=== PATIENT | female | born 1990 | race Caucasian/White ===

== ENCOUNTER 2024-06-18 16:17 | Day surgery (SDC) | payer BC ==
[2024-06-18] MEDS ORDERED: hydrALAZINE 20 MG/ML VIAL SLOW IVP PRN (17:29)
[2024-06-18 18:04] VITALS: BMI 26.6
[2024-06-18 18:07] LABS: Creatinine, Urine 79.14 mg/dL (47-110)
[2024-06-18 18:10] LABS: #Basophils 0.03 10x3/uL (0.0-0.2); #Eosinphils 0.03 10x3/uL (0.0-0.5); #Monocytes 1.05 10x3/uL (0.0-1.1); #Neutrophils 6.36 10x3/uL (1.5-8.4); %Basophils 0.3 % (0.0-2.0); %Eosinophils 0.3 % (0.0-6.0); %Lymphocytes 23.8 % (18.0-47.0); %Monocytes 10.7 % (0.0-10.0); %Neutrophils 64.6 % (40.0-75.0); Hematocrit 33.9 % (34.9-44.5); Hemoglobin 12.1 g/dL (12.0-15.5); Mean Corpuscular HGB CONC 35.7 g/dL (32.0-36.0); Mean Corpuscular Hemoglobin 31.3 pg (27.0-33.0); Mean Corpuscular Volume 87.6 fL (81.6-98.3); Platelet Count 231 10x3/uL (150-450); RBC Distribution Width 12.6 % (11.5-14.5); Red Blood Cell (RBC) Count 3.87 10x6/uL (3.90-5.03); White Blood Cell (WBC) Count 9.8 10x3/uL (3.5-10.5)
[2024-06-18 18:24] LABS: ALT (SGPT) 28 U/L (8-55); AST (SGOT) 32 U/L (5-34); Albumin 2.4 g/dL (3.5-5.0); Alkaline Phosphatase 202 U/L (40-110); Anion Gap 14 mmol/L (10-20); BUN (Urea Nitrogen) 8 mg/dL (7.0-18.7); Bilirubin, Total 0.2 mg/dL (0.2-1.2); Calc. Creatinine Clearance 174 mL/min (70-130); Calcium 8.6 mg/dL (7.8-10.44); Carbon Dioxide 18 mmol/L (22-29); Chloride 109 mmol/L (98-107); Estimated GFR 127; Globulin 3.1 g/dL (2.4-3.5); Glucose 64 mg/dL (70-105); Potassium 3.6 mmol/L (3.5-5.1); Protein, Total 5.5 g/dL (6.0-8.3); Sodium 137 mmol/L (136-145)
== END 2024-06-18 19:35 | disposition home or self-care (01) ==
LOC: CSHLD/OP 16:17
PROVIDERS: ATTEND Obstetrics & Gynecology
DX: O13.3 Gestational [pregnancy-induced] hypertension without significant proteinuria, third trimester (principal); O14.93 Unspecified pre-eclampsia, third trimester; O99.513 Diseases of the respiratory system complicating pregnancy, third trimester; J45.909 Unspecified asthma, uncomplicated; Z3A.34 34 weeks gestation of pregnancy
CPT/HCPCS: 36415; 80053; 82570; 84156; 85025; 99283

== ENCOUNTER 2024-06-20 11:54 | Inpatient (IN) | payer BC ==
[2024-06-20] MEDS ORDERED: hydrALAZINE 20 MG/ML VIAL SLOW IVP PRN ×2 (12:52→19:55)
[2024-06-20] MEDS ORDERED: Bicitra 30 ML UDCUP PO PRN (12:52)
[2024-06-20] MEDS ORDERED: Promethazine HCl 25 MG/ML VIAL IM PRN ×2 (12:52→16:51)
[2024-06-20] MEDS ORDERED: Ondansetron PF 4 MG/2 ML Vial IVP PRN ×5 (12:52→23:11)
[2024-06-20] MEDS ORDERED: Famotidine/PF 20 mg/2ml Vial SLOW IVP PRN (12:52)
[2024-06-20] MEDS ORDERED: Lactated Ringer's 1,000 ML IV SCH (13:00)
[2024-06-20] MEDS ORDERED: Oxytocin 30 units/NS 500 ML 500 ML IV SCH ×2 (13:00→19:55)
[2024-06-20 13:23] LABS: Hematocrit 36.2 % (34.9-44.5); Mean Corpuscular HGB CONC 35.9 g/dL (32.0-36.0); Mean Corpuscular Hemoglobin 31.4 pg (27.0-33.0); Mean Corpuscular Volume 87.4 fL (81.6-98.3); Mean Platelet Volume 11.1 fL (7.4-10.4); Platelet Count 235 10x3/uL (150-450); RBC Distribution Width 12.4 % (11.5-14.5); Red Blood Cell (RBC) Count 4.14 10x6/uL (3.90-5.03); White Blood Cell (WBC) Count 8.3 10x3/uL (3.5-10.5)
[2024-06-20 13:40] LABS: ALT (SGPT) 22 U/L (8-55); AST (SGOT) 23 U/L (5-34); Albumin 2.6 g/dL (3.5-5.0); Alkaline Phosphatase 237 U/L (40-110); Anion Gap 13 mmol/L (10-20); BUN (Urea Nitrogen) 8 mg/dL (7.0-18.7); Bilirubin, Total 0.2 mg/dL (0.2-1.2); Calc. Creatinine Clearance 0 mL/min (70-130); Calcium 8.9 mg/dL (7.8-10.44); Carbon Dioxide 17 mmol/L (22-29); Chloride 109 mmol/L (98-107); Estimated GFR 127; Glucose 71 mg/dL (70-105); Potassium 4.3 mmol/L (3.5-5.1); Protein, Total 5.6 g/dL (6.0-8.3); Sodium 135 mmol/L (136-145)
[2024-06-20] MEDS: CEFAZOLIN 2 GM in Sodium Chloride 0.9% 100 ML IVPB SCH (15:23)
[2024-06-20 15:45] LABS: Syphilis Antibody Nonreactive (Nonreactive); Syphilis Antibody Index 0.03 S/CO (<1.00 Non-Reactive)
[2024-06-20 15:52] LABS: HBsAg Index 0.15 S/CO (0-0.99); Hep B Surf Ag - L&D Non-Reactive S/CO (NonReactive)
[2024-06-20] MEDS ORDERED: fentaNYL 50 mcg/mL 1 mL Vial SLOW IVP PRN ×2 (16:51→23:11)
[2024-06-20] MEDS ORDERED: Ketorolac Tromethamine 30 MG (1 mL) VIAL IVP PRN (16:51)
[2024-06-20] MEDS ORDERED: Moisturizing Cream (Eucerin) 113 GM JAR TOP PRN (16:51)
[2024-06-20] MEDS ORDERED: Meperidine HCl/PF 25 MG (1 mL) VIAL SLOW IVP PRN ×2 (16:51→23:11)
[2024-06-20] MEDS ORDERED: Naloxone HCl 0.4 mg/ml Vial IVP PRN ×2 (16:51)
[2024-06-20] MEDS ORDERED: Naloxone HCl 0.4 mg/ml Vial IV PRN (16:51)
[2024-06-20] MEDS ORDERED: diphenhydrAMINE 50 MG/ML VIAL IVP PRN (16:51)
[2024-06-20] MEDS ORDERED: Ketorolac Tromethamine 30 MG (1 mL) VIAL IVP SCH ×2 (17:00→23:15)
[2024-06-20] MEDS ORDERED: Communication Order-Pharmacy FS SCH (17:00)
[2024-06-20] MEDS ORDERED: diphenhydrAMINE 25 MG CAP PO PRN (19:55)
[2024-06-20] MEDS ORDERED: Lanolin Ointment 7 GM TUBE TOP PRN (19:55)
[2024-06-20] MEDS ORDERED: Bisacodyl 10 MG SUPP PR PRN (19:55)
[2024-06-20] MEDS ORDERED: HYDROcodone/Acetaminophen 5/325 mg Tablet PO PRN ×2 (19:55)
[2024-06-20] MEDS: ePHEDrine Sulfate 50 MG/10 ML VIAL ONE (22:58)
[2024-06-20] MEDS: fentaNYL 50 mcg/mL 1 mL Vial ONE (22:58)
[2024-06-20] MEDS: Oxytocin 10 UNITS/ML VIAL ONE ×2 (22:58→22:59)
[2024-06-20] MEDS: Ondansetron PF 4 MG/2 ML Vial ONE (22:58)
[2024-06-20] MEDS: PHENYLEPHRINE-NS 100 MCG/ML 10 ML SYRINGE ONE (22:58)
[2024-06-20] MEDS: Morphine PF 10 MG/10 ML VIAL ONE (22:58)
[2024-06-20] MEDS ORDERED: Morphine 4 MG/ML VIAL SLOW IVP PRN (23:11)
[2024-06-21] MEDS: Ketorolac Tromethamine 30 MG (1 mL) VIAL IVP PRN (03:14)
[2024-06-21 04:38] LABS: Hematocrit 30.4 % (34.9-44.5); Hemoglobin 10.6 g/dL (12.0-15.5); Mean Corpuscular HGB CONC 34.9 g/dL (32.0-36.0); Mean Corpuscular Hemoglobin 30.9 pg (27.0-33.0); Mean Corpuscular Volume 88.6 fL (81.6-98.3); Mean Platelet Volume 10.5 fL (7.4-10.4); Platelet Count 194 10x3/uL (150-450); RBC Distribution Width 12.4 % (11.5-14.5); Red Blood Cell (RBC) Count 3.43 10x6/uL (3.90-5.03); White Blood Cell (WBC) Count 11.9 10x3/uL (3.5-10.5)
[2024-06-21] MEDS: Ibuprofen 800 MG TAB PO SCH ×2 (08:00→09:40)
[2024-06-21] MEDS: Docusate 100 MG CAP PO SCH (09:40)
[2024-06-21] MEDS: Prenatal Vitamin 1 TAB PO SCH (09:40)
[2024-06-21] MEDS: Ferrous Sulfate 325 MG TAB PO SCH (14:18)
[2024-06-21] MEDS: Simethicone Chewable 80 MG TAB PO PRN (17:30)
[2024-06-21] MEDS: Boostrix 0.5 ML (Tdap) VIAL (>/=7 yrs of age) IM ONE (19:20)
[2024-06-23 07:55] VITALS: TEMP 97.9
[2024-06-23 11:07] VITALS: BP 143/90
== END 2024-06-23 17:00 | disposition home or self-care (01) | DRG 788 ==
LOC: CSHLD 11:54 → CSHPP 19:39
PROVIDERS: ADMIT Obstetrics & Gynecology; ATTEND Obstetrics & Gynecology
PROC: 10D00Z1 Extraction of Products of Conception, Low, Open Approach (ICD-10-PCS; principal; 2024-06-20)
DX: O13.4 Gestational [pregnancy-induced] hypertension without significant proteinuria, complicating childbirth (principal); Z3A.35 35 weeks gestation of pregnancy; O36.5930 Maternal care for other known or suspected poor fetal growth, third trimester, not applicable or unspecified; O76 Abnormality in fetal heart rate and rhythm complicating labor and delivery; Z37.0 Single live birth; O14.04 Mild to moderate pre-eclampsia, complicating childbirth; D50.8 Other iron deficiency anemias; O99.02 Anemia complicating childbirth
CPT/HCPCS: 36415; 51702; 80053; 85027; 86780; 86850; 86900; 86901; 87340; J1885; J2274; J2405; J2590; J3010

== ENCOUNTER 2024-08-15 10:17 | Outpatient (CLI) | payer BC | END 2024-08-15 10:18 | disposition home or self-care (01) | LOC: CSHULT 10:17 | PROVIDERS: ATTEND Nurse Practitioner Women's Health | DX: N63.12 Unspecified lump in the right breast, upper inner quadrant (principal) | CPT/HCPCS: 19083; 88305 ==